=== PATIENT | male | born 1980 | race Two or more races ===

== ENCOUNTER 2019-10-29 21:09 | Emergency (ER) | payer MEDICAID ==
[~2019-10-29] VITALS: Ht 198.1 cm; Wt 149.7 kg
[2019-10-29 21:20] VITALS: BP 131/97
--- NOTE | 2019-10-29 21:20 | NUR ---
ED Nurse Note: Pt amandaa from temporary housing [place] hyperglycemia. Pt aao x 4, ambulatory with steady gait. Pt denies any symptoms of hyperglycemia except for dizziness. Pt states that he started to feel dizzy at home and checked his BS (glucometer unable to read accurately d/t critical high). RA states pt BS 498 en route. Pt HR elevated 115, pt placed on monitor and in gown. ERMD at bedside
--- NOTE | 2019-10-29 21:35 | NUR ---
ED Nurse Note: IV line initiated, blood drawn. Blood and UA sent to labs. All medications administered, pt tolerated well no ss of distress noted.
[2019-10-29] MEDS ORDERED: Insulin Human Regular 100units/ml 3ml IV ONE ×2 (21:45→23:00)
[2019-10-29 22:12] LABS: APPEARANCE,URINE CLEAR; BILIRUBIN, URINE NEGATIVE (NEGATIVE); COLOR,URINE PALE YELLOW; GLUCOSE, URINE (UA) 4+ (NEGATIVE); KETONES,URINE NEGATIVE (NEGATIVE); LEUKOCYTE ESTERASE ,URINE NEGATIVE (NEGATIVE); NITRITE,URINE NEGATIVE (NEGATIVE); PH,URINE 5 (4.5-8.0); PROTEIN,URINE NEGATIVE (NEGATIVE); UROBILINOGEN,URINE NORMAL MG/DL (0.0-1.0)
[2019-10-29 22:19] LABS: BASOPHILS % (AUTO) 0.9 % (0.0-2.0); EOSINOPHILS % (AUTO) 1.6 % (0.0-3.0); HEMATOCRIT 45.4 % (42.0-52.0); HEMOGLOBIN 14.5 G/DL (14.2-18.0); LYMPHOCYTES % (AUTO) 36.6 % (20.0-45.0); MEAN CORPUSCULAR VOLUME 87 FL (80-99); PLATELET COUNT 250 K/UL (150-450); RED BLOOD COUNT 5.22 M/UL (4.70-6.10); WHITE BLOOD COUNT 11.6 K/UL (4.8-10.8)
[2019-10-29 22:33] LABS: ALANINE AMINOTRANSFERASE 66 U/L (12-78); ALBUMIN 3.6 G/DL (3.4-5.0); ALBUMIN/GLOBULIN RATIO 0.9 (1.0-2.7); ALKALINE PHOSPHATASE 243 U/L (46-116); ANION GAP 10 mmol/L (5-15); ASPARTATE AMINO TRANSFERASE 24 U/L (15-37); BILIRUBIN,TOTAL 0.3 MG/DL (0.2-1.0); BLOOD UREA NITROGEN 17 mg/dL (7-18); CALCIUM 9.3 MG/DL (8.5-10.1); CARBON DIOXIDE 27 MMOL/L (21-32); CHLORIDE 94 MMOL/L (98-107); CREATININE 1.2 MG/DL (0.55-1.30); POTASSIUM 4.1 MMOL/L (3.5-5.1); SODIUM 131 MMOL/L (136-145)
--- NOTE | 2019-10-29 22:48 | Emergency Room Report ---
History of Present Illness General Chief Complaint: Dizziness Source: Patient, EMS (Dc Judge MD) Present Illness HPI Patient is a 39-year-old male brought in by EMS after increased blood sugar. Patient had been taking metformin as well as Lantus. He had recent change in his insulin regimen due to hyperglycemia. Had been having some increased suprapubic discomfort. He denies any fever or cough or chest discomfort. A prior history of [place] in the past. Denies any chest discomfort or current pain. Patient's blood sugar was noted to be high and patient was brought in by EMS for further evaluation and treatment of elevated blood sugar. 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 (Dc Judge MD) Patient History Past Medical History: see triage record Reviewed Nursing Documentation: PMH: Agreed; PSxH: Agreed (Dc Judge MD) Nursing Documentation-PMH Past Medical History: No History, Except For Hx Hypertension: Yes Hx Diabetes: Yes (Dc Judge MD) Review of Systems All Other Systems: negative except mentioned in HPI (Dc Judge MD) Physical Exam Vital Signs Date Time Temp Pulse Resp B/P (MAP) Pulse Ox O2 Delivery O2 Flow Rate FiO2 10/29/19 21:11 97.5 110 20 131/97 (108) 98 Room Air Sp02 EP Interpretation: reviewed, normal General Appearance: normal inspection, well appearing, no apparent distress, alert, GCS 15, obese Head: atraumatic ENT: normal ENT inspection, hearing grossly normal, normal voice Neck: normal inspection, full range of motion, supple, no bony tend Respiratory: normal inspection, lungs clear, normal breath sounds, no respiratory distress, no retraction, no wheezing Cardiovascular #1: regular rate, rhythm, no edema Gastrointestinal: normal inspection, normal bowel sounds, non tender, soft, no guarding, no hernia Genitourinary: no CVA tenderness Musculoskeletal: normal inspection, back normal, normal range of motion Neurologic: alert, motor strength/tone normal, 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 Differential diagnosis include was not limited to hyperglycemia secondary to dietary indiscretion, medication noncompliance, myocardial infarction among others. Because of complexity of patient's case laboratory tests and imaging studies were ordered. EKG interpreted by me showed normal sinus rhythm without acute ST or T wave changes. Started on IV fluids as well as IV insulin. Patient was endorsed to Dr. Gonzalez pending further reassessment of patient's hyperglycemia. Labs Test 10/29/19 21:42 White Blood Count 11.6 K/UL (4.8-10.8) Red Blood Count 5.22 M/UL (4.70-6.10) Hemoglobin 14.5 G/DL (14.2-18.0) Hematocrit 45.4 % (42.0-52.0) Mean Corpuscular Volume 87 FL (80-99) Mean Corpuscular Hemoglobin 27.9 PG (27.0-31.0) Mean Corpuscular Hemoglobin Concent 32.0 G/DL (32.0-36.0) Red Cell Distribution Width 13.0 % (11.6-14.8) Platelet Count 250 K/UL (150-450) Mean Platelet Volume 6.9 FL (6.5-10.1) Neutrophils (%) (Auto) 55.0 % (45.0-75.0) Lymphocytes (%) (Auto) 36.6 % (20.0-45.0) Monocytes (%) (Auto) 6.0 % (1.0-10.0) Eosinophils (%) (Auto) 1.6 % (0.0-3.0) Basophils (%) (Auto) 0.9 % (0.0-2.0) Urine Color Pale yellow Urine Appearance Clear Urine pH 5 (4.5-8.0) Urine Specific [place] 1.005 (1.005-1.035) Urine Protein Negative (NEGATIVE) Urine Glucose (UA) 4+ (NEGATIVE) Urine Ketones Negative (NEGATIVE) Urine Blood Negative (NEGATIVE) Urine Nitrite Negative (NEGATIVE) Urine Bilirubin Negative (NEGATIVE) Urine Urobilinogen Normal MG/DL (0.0-1.0) Urine Leukocyte Esterase Negative (NEGATIVE) Sodium Level 131 MMOL/L (136-145) Potassium Level 4.1 MMOL/L (3.5-5.1) Chloride Level 94 MMOL/L (98-107) Carbon Dioxide Level 27 MMOL/L (21-32) Anion Gap 10 mmol/L (5-15) Blood Urea Nitrogen 17 mg/dL (7-18) Creatinine 1.2 MG/DL (0.55-1.30) Estimat Glomerular Filtration Rate > 60 mL/min (>60) Glucose Level 582 MG/DL (74-106) Calcium Level 9.3 MG/DL (8.5-10.1) Total Bilirubin 0.3 MG/DL (0.2-1.0) Aspartate Amino Transf (AST/SGOT) 24 U/L (15-37) Alanine Aminotransferase (ALT/SGPT) 66 U/L (12-78) Alkaline Phosphatase 243 U/L (46-116) Troponin I 0.000 ng/mL (0.000-0.056) Total Protein 7.7 G/DL (6.4-8.2) Albumin 3.6 G/DL (3.4-5.0) Globulin 4.1 g/dL Albumin/Globulin Ratio 0.9 (1.0-2.7) Lipase 211 U/L (73-393) (Dc Judge MD) ER Course Sign out to me. He came in with chief plaint of dizziness. Blood glucose was in the 500s. No evidence of DKA. Blood glucose improved with insulin and fluids. Patient was taking Lantus twice a day and his blood sugar was in the 200s. His doctor change it to at night with morning doses of Humalog. He said because of this because his blood sugars go out of control again. I will switch him back to his old regimen with sliding scale in between. (Mihai Gonzalez MD) Last Vital Signs Date Time Temp Pulse Resp B/P (MAP) Pulse Ox O2 Delivery O2 Flow Rate FiO2 10/29/19 21:11 97.5 110 20 131/97 (108) 98 Room Air Status: unchanged (Dc Judge MD) Status: improved (Mihai Gonzalez MD) Disposition: HOME, SELF-CARE Condition: Stable Scripts No Active Prescriptions or Reported Meds Referrals: NOT CHOSEN IPA/MD,REFERRING (PCP) Additional Instructions: Increase your Lantus to 20 units twice a day. For breakfast and lunch, cover your glucose with sliding scale. Blood sugar 100-150: No insulin Blood sugar 151-200: Take 3 units of insulin Blood sugar 201-250: Take 5 units of insulin Blood sugar 251-300: Take 7 units of insulin Blood sugar 301-350: Take 10 units of insulin Blood sugar 351-400: Take 12 units of insulin Blood sugar 401 and above, take 15 units of insulin. If not down in one hour, call your doctor or go to hospital. Dc Judge MD October 29, 2019 22:48 Mihai Gonzalez MD October 29, 2019 23:48
--- NOTE | 2019-10-29 22:55 | NUR ---
ED Nurse Note: Bs recheck 443, ERMD aware. All medications administered. Pt tolerated well. No ss of distress noted. Will continue to monitor.
[2019-10-29 23:32] VITALS: BP 105/59
--- NOTE | 2019-10-29 23:42 | NUR ---
ED Nurse Note: Bs recheck 306. ERMD notified. Pt resting in bed comfortably. Will continue to monitor. VSS.
[2019-10-30 00:04] VITALS: BP 105/59
--- NOTE | 2019-10-30 00:04 | NUR ---
ER DISCHARGE NOTE: Patient is cleared to be discharged home per ERMD, pt is aox4, 99% on room air, with stable vital signs. pt was given dc instructions, pt was able to verbalize understanding, pt id band and iv site removed without complications. pt is able to ambulate with steady gait. pt took all belongings. Pt reminded to clarify medications with PCP d/t recent medication adjustment.
== END 2019-10-30 00:04 | disposition home or self-care (01) ==
LOC: EDBD 21:09 → EMR 21:28
DX: E11.65 Type 2 diabetes mellitus with hyperglycemia (principal); Z79.4 Long term (current) use of insulin; Z79.84 Long term (current) use of oral hypoglycemic drugs; I10 Essential (primary) hypertension; I25.2 Old myocardial infarction; E66.9 Obesity, unspecified; Z68.38 Body mass index [BMI] 38.0-38.9, adult
CPT/HCPCS: 36415; 80053; 81003; 82962; 83690; 84484; 85025; 93005; 96361; 96374; 96375; 96376; J1815; J2405; J7030; Z7502; 99284